=== PATIENT | female | born 1965 | race African-American/Black ===

== ENCOUNTER 2025-03-14 15:10 | Outpatient (AMB) | payer OTHER, SELFPAY ==
--- NOTE | 2025-03-14 14:08 | A.OFFPC_ITS ---
Vital Signs 03/14/25 15:12 Height 5 ft 5 in Weight 169 lb BMI 28.1 BP 120/82 Blood Pressure Location Lt brachial Position Sitting Respiration 16 Pulse 93 Pulse Source Pulse Oximeter Temp 98.1 F Temp Source Oral Pulse Oximetry (%) 95 Oxygen Delivery Method Room Air Intake Visit Reasons: Establish care, right wrist pain and swelling Signs Cleaner Required: No Accompanied by: Self / Same As Patient Allergies acetaminophen (From Vicodin) Allergy (Intermediate, Verified 03/14/25 15:14) hallucinations/itching codeine Allergy (Intermediate, Verified 03/14/25 15:14) hallucinations/itching hydrocodone (From Vicodin) Allergy (Intermediate, Verified 03/14/25 15:14) hallucinations/itching oxycodone (From Percocet) Allergy (Intermediate, Verified 03/14/25 15:14) hallucinations/itching cortisone Adverse Reaction (Intermediate, Verified 03/14/25 15:47) Rash Medication List - Last Reconciled 03/14/25 by Michelle Edwards MD amlodipine 5 mg PO DAILY atorvastatin 20 mg PO BEDTIME ibuprofen 800 mg PO 3XW multivitamin 1 tab PO DAILY Tobacco use date assessed: 03/14/25 Dental Screening Dental Screen Date: 03/14/25 Did you have a dental visit in the last 12 months?: Yes Did you have a dental problem in the last 6 months where you did not have access to dental care?: No Was dental information given to patient?: Patient has dentist HPI HPI Comments History of Present Illness Details The patient is a 59 year old female presenting to re- establish care with right wrist pain and swelling. Transfer records pending. Patient experiences right wrist pain starting three weeks prior, with continuous wrist swelling. Pain grade 10/10, reduced to 5/10 by hot water and diclofenac gel application. Pain disrupts sleep, mainly in the wrist and radiates to the elbow. Pain radiates up right forearm Hypertension: Current management includes amlodipine. Hyperlipidemia: Current management is atorvastatin. Impaired fasting glcuose-due for repeat a1c Surgical History: - Left knee surgery (details unspecified ) Social History: - Employment: Works as a security offic e in school - Exercise: Active while managing childr en - Nutrition: Recent weight reduction eff orts with healthy dietary changes - Weight: Recent decrease to approximate ly 160 pounds - Lifestyle: Eliminated snacks and sweet s, focused on healthier dietary intake Review of Systems - Musculoskeletal: Reports sharp wrist p ain, swelling, and radiation to the elbow. - General: Denies systemic symptoms such as fever. Physical Exam Gen: NAD Chest: CTABL Card: normal s1, s2, soft murmur across precordium Musculoskeletal- Confirmed tenderness and pain with flexion and extension of wrist and ulnar deviation, +[place]; reduced director of technology strength noted on the right side due to pain compared to left Assessment and Plan 1. Tendinitis - Diclofenac gel four times daily. - Wrist brace advised. - X-ray of wrist planned to also rule ou t concomitant osteoarthritis 2. Hypertension - Continue amlodipine. 3. Hyperlipidemia - Continue atorvastatin. Discussion Notes During our consultation, we discussed the likelihood of tendinitis and potential arthritis as culprits of the wrist pain and swelling, with tendinitis taking precedence due to its acute presentation. The potential complications related to NSAID use in hypertensive patients were also addressed, advised to trial tylenol 500mg po, notes in past could not tolerate tylenol. OT trial after xrays- patient is reluctant to have any potential injections due to prior reactions. If no symptom resolution occurs, a consultation with a hand specialist could be beneficial. Our discussion also encompassed the importance of maintaining consistent medication treatment for hypertension and hyperlipidemia. We explored lifestyle modifications around food intake and exercise contributing to weight reduction achievements. Patient Instructions - Apply Voltaren gel up to four times da efraín for pain. - Wear the wrist brace, especially durin g activity. - Proceed to the lab for wrist x-rays. - Continue hypertension and cholesterol medications. - Call with an update after trying the b race and gel over the next week - Avoid foods high in salt and cholester ol. [facility] Medical History (Updated 03/14/25 @ 16:07 by Michelle Edwards MD) Hyperlipidemia Impaired fasting glucose Hypertension Surgical History (Updated 03/14/25 @ 15:46 by Michelle Edwards MD) H/O knee surgery Social History Housing: Apartment Patient Tobacco Use Status: Never used Tobacco e-Cigarette/Vaping Use: Never Used service: No Current occupational status: employed Current occupation: [employer] [place] Questionnaire AUDIT C Alcohol Use Questionnaire (AUDIT-C) 1. How often do you have a drink containing alcohol?: 2-4 times a month 2. How many drinks containing alcohol do you have on a typical day when you are drinking?: 1 or 2 3. How often do you have six or more drinks on one occasion?: Never Total Score: 2 Physical exam (Primary Care) Vital Signs: Last Vital Signs Temp 98.1 F 03/14/25 15:12 Pulse 93 03/14/25 15:12 Resp 16 03/14/25 15:12 BP 120/82 03/14/25 15:12 Pulse Ox 95 03/14/25 15:12 Oxygen Delivery Method Room Air 03/14/25 15:12 BMI result Body Mass Index 28.1 Tobacco/Smoking Status: Tobacco use Status Tobacco use date assessed 03/14/25 03/14/25 14:09 Patient Tobacco Use Status Never used Tobacco 03/14/25 15:19 e-Cigarette/Vaping Use Never Used 03/14/25 15:19 Coding Level of Care Code Est Pt Level 4 (56883) Complex EM visit Add On G2211 Diagnoses Right hand pain M79.641 Primary hypertension I10 Hypertension type: primary hypertension Impaired fasting glucose R73.01 Hyperlipidemia, unspecified hyperlipidemia type E78.5 Hyperlipidemia type: unspecified Assessment & Plan Assessment & Plan (1) Right hand pain: Code(s): M79.641 - Pain in right hand Category: Medical (2) Hypertension: Code(s): I10 - Essential (primary) hypertension Category: Medical Qualifiers: Hypertension type: primary hypertension Qualified Code(s): I10 - Essential (primary) hypertension (3) Impaired fasting glucose: Code(s): R73.01 - Impaired fasting glucose Category: Medical Plan: check A1C (4) Hyperlipidemia: Code(s): E78.5 - Hyperlipidemia, unspecified Category: Medical Qualifiers: Hyperlipidemia type: unspecified Qualified Code(s): E78.5 - Hyperlipidemia, unspecified Plan - Use Voltaren gel up to 4 times/day. - Apply wrist brace during activity. - Obtain wrist x-ray. - Continue hypertension and hyperlipidemia medications. Orders: Orders Hemoglobin A1c Today I10 - Essential (primary) hypertension, R73.01 - Impaired fasting glucose Basic Metabolic Panel Today I10 - Essential (primary) hypertension, R73.01 - Impaired fasting glucose XR hand RT min 3V Today M79.641 - Pain in right hand Medications: New amlodipine 5 mg PO DAILY 90 tabs 3RF atorvastatin 20 mg PO BEDTIME 90 tabs 3RF diclofenac sodium 1% apply to single elbow, wrist or hand; for hand includes palm/fingers/back of hand 2 grams topical QID PRN 100 grams 6RF hand pain and swelling Patient Instructions: Try 500mg tylenol with dinner Use voltaren gel four times per day as needed get labs and xray use brace for hand pain
[2025-03-14 15:12] VITALS: BP 120/82; PULSE 93; RESP 16; TEMP 36.7; O2SAT 95; BMI 28.1
--- OUTSIDE RECORDS SUMMARY | 2025-03-14 16:46 | XMS_ITS | Clinical Summary ---
Author Organization [address] [facility] Address [address] [place] [address] Phone Care Team Providers Care Oven Operator Automatic Name Role Phone Unavailable Primary Care Provider Unavailabl e Allergies Active Allergy Reactions Criticality Noted Date Comments Codeine Hallucinations,Itching 04/07/2014 Hydrocodone-Acetaminophen Hallucinations,Itching 04/07/2014 Oxycodone-Acetaminophen Itching,Hallucinations 04/07/2014 Medications albuterol HFA (PROAIR HFA ; PROVENTIL HFA ; VENTOLIN HFA) 90 mcg/actuation inhaler Inhale 2 puffs by mouth every 6 (six) hours if needed for wheezing. 4 Active fluticasone propionate (FLONASE) 50 mcg/actuation nasal spray Administer 2 sprays into each nostril 1 (one) time each day. 3 Active fluticasone furoate-vilant Elizabeth (BREO ELLIPTA) 200-25 mcg/dose inhaler Inhale 1 puff by mouth 1 (one) time each day. 4 Active LORazepam (ATIVAN) 0.5 mg tablet Take 1 tablet (0.5 mg total) by mouth See administration instructions. Take 30 mins prior to flight 2 tablet 5 Active amLODIPine (NORVASC) 5 mg tablet TAKE 1 TABLET BY MOUTH EVERYDAY AT BEDTIME 90 tablet 5 Active atorvastatin (LIPITOR) 20 mg tablet Take 1 tablet (20 mg total) by mouth at bedtime. 90 tablet 5 Active ibuprofen (ADVIL,MOTRIN) 800 mg tablet Take 1 tablet (800 mg total) by mouth 3 (three) times a week. 36 tablet 5 Active Active Problems Problem Noted Date Diagnosed Date Prediabetes 02/05/2024 Obstructive sleep apnea 05/18/2022 Overview (08/21/2024): Refusing cpap Multinodular goiter 02/09/2018 Obesity (BMI 30.0-34.9) 06/27/2017 Lumbar disc herniation with radiculopathy 2017 Overview (03/07/2024): Referred to Dr. 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 Repeat US in 11/2016 shows interval increase in size and irregularity. S/p FNA biopsy results pending Vitamin D deficiency 04/27/2014 HTN (hypertension) 04/07/2014 Resolved Problems Problem Noted Date Diagnosed Date Resolved Date Supraclavicular lymphadenopathy 08/10/2022 08/21/2024 Overview (03/07/2024): Left-sided. Onset 3 weeks ago. Larger in size at onset and does appear to be improving in size per patient report. On examination there is about a 1 cm rounded soft mobile nontender lymph node. No alarm symptoms. CBC and thyroid profile within normal limits. Ultrasound pending. See progress note from 08/08/2022. Disease due to severe acute respiratory syndrome coronavirus 2 (SARS-CoV-2) 05/26/2022 04/06/2024 Overview (08/21/2024): Right shoulder pain 04/26/2016 08/22/19 25 Overview (03/07/2024): Supraspinatus and infraspinatus tendinopathy. Subacromial subdeltoid bursitis. Calcific tendinopathy versus calcific bursitis as described above. AC joint degeneration available Referred to orthopedics Immunizations Immunization Administration Dates Next Due Influenza trivalent, with pr eservative (Fluzone; Afluria) 6mo and older 09/04/2009 Tdap Tetanus diptheria acell ular pertussis (Boostrix; Adacel) 7yo and older 08/28/2014 Tetanus Toxoid, Unspecified 02/10/2009 Zoster recombinant (Shingrix) 19yo and older ,02/22/2020 Surgical History Surgery Date Site/Laterality Comments KNEE SURGERY COLONOSCOPY 11/27/2014 Colon polyps x 2 ( TA x 1), lipoma HYSTERECTOMY supracervical Medical History Medical History Date Comments Vitamin D deficiency 04/27/2014 Hypercholesterolemia 04/27/2014 Thyroid nodule 04/27/2014 Herpes simplex 04/27/2014 HTN (hypertension) Prediabetes 02/05/2024 Family History Medical History Relation Name Comments Coronary artery disease Father Alzheimer's disease Mother Relation Name Status Comments Father Mother Social History Tobacco Use Types Packs/Day Years Used Date Smoking Tobacco: Never Smokeless Tobacco: Never Alcohol Use Standard Drinks/Week Comments Yes 0 (1 standard drink = 0.6 oz pur e alcohol) Comments Unknown Sex and Gender Information Value Date Recorded Sex Assigned at Not on file Legal Sex Female 6:33 PM EST Gender Identity Not on file Sexual Orientation Not on file Obstetrics History Last Filed Vital Signs Vital Sign Reading Time Taken Comments Blood Pressure 130/75 03/01/2024 2:43 PM EDT Sit ting L Arm Pulse 89 02/23/2024 8:38 AM EDT Temperature - - Respiratory Rate - - Oxygen Saturation 97% 02/15/2024 3:45 PM EDT ambulatory o2 Inhaled Oxygen Concentration - - Weight 75.8 kg (167 lb) 03/01/2024 2:43 PM EDT Height 162.6 cm (5' 4 ) 03/01/2024 2:43 PM EDT Body Mass Index 28.67 03/01/2024 2:43 PM EDT Plan of Treatment Health Maintenance Due Date Last Done Comments Cervical Cancer Screening: Pap Smear 10/01/1984 Pneumococcal Vaccine: 50+ Years (1 of 1 - PCV) 10/01/2013 HIV Screening 04/30/2022 Social Influencers of Health Screening 04/30/2022 Hypertension/CHF/CAD Annual BMP Blood Test 05/01/2022 Depression Screening 05/22/2024 Breast Cancer Screening 05/31/2024 05/31/19 23, 05/08/2021, 04/04/2020 DTaP,Tdap,and Td Vaccines (2 - Td or Tdap) 08/28/2024 08/28/2014 Colorectal Cancer Screening: Colonoscopy 12/08/2024 12/09/2019 COVID-19 Vaccine (4 - 2024-2 6 season) 2025 05/12/2021, 08/29/2020, 08/01/2020 Influenza Vaccine (#1) 2025 09/04/2009 Cholesterol Screening (Lipid Panel) 11/03/2027 11/02/2022 RSV Immunization Adult Patients (1 - 1-dose 75+ series) 10/01/2038 Hepatitis C Screening Addressed 03/02/2015 Overri dden with the intention of not completing the topic Zoster Vaccines Completed 05/08/2022, 02/22/2020 HIB Vaccines Aged Out No longer eligi ble based on patient's age to complete this topic HPV Vaccines Aged Out No longer eligi ble based on patient's age to complete this topic Hepatitis A Vaccines Aged Out No long er eligible based on patient's age to complete this topic Hepatitis B Vaccines Aged Out No long er eligible based on patient's age to complete this topic IPV Vaccines Aged Out No longer eligi ble based on patient's age to complete this topic MMR Vaccines Aged Out No longer eligi ble based on patient's age to complete this topic Meningococcal ACWY Vaccine Aged Out N o longer eligible based on patient's age to complete this topic Meningococcal B Vaccine Aged Out No l onger eligible based on patient's age to complete this topic RSV Immunization Patients Under 20 months Aged Out No longer eligible b ased on patient's age to complete this topic Varicella Vaccines Aged Out No longer eligible based on patient's age to complete this topic Procedures Procedure Name Priority Date/Time Associated Diagnosis Comments SCREENING MAMMOGRAPHY BI 2-VIEW BREAST INC CAD Routine 05/31/2022 9:41 AM EST Encounter for screening mammogram for malignant neoplasm of breast from Last 3 Months or Most Recently Relevant to Health Maintenance Results * SCREENING MAMMOGRAPHY BI 2-VIEW BREAST INC CAD (05/31/2022 9:41 AM EST) Anatomical Region Laterality Modality Radiographic Olesya ging 05/08/2021 1:59 PM EST Narrative 05/31/2022 4:34 PM EST This is a summary report. The complete report is available in the patient's medical record. If you cannot access the medical record, please contact the sending organization for a detailed fax or copy. BILATERAL 2D and 3D DIGITAL SCREENING MAMMOGRAM History: Routine screening. No current breast complaints. Comparison: Multiple priors dating back to 04/04/2020 Technique: Bilateral full-field digital 2D and 3D mammography was performed using standard CC and MLO projections CAD was used to evaluate this mammogram. Findings: Density: There are scattered areas of fibroglandular density-B RIGHT: No suspicious masses, groups of microcalcification or areas of architectural distortion identified. Stable typically benign parenchymal asymmetries LEFT: No suspicious masses, groups of microcalcifications or areas of architectural distortion identified. Stable typically benign parenchymal asymmetries IMPRESSION: : 1. No mammographic evidence of malignancy. BI-RADS Category 2 benign findings Recommendation: Routine annual screening mammography is recommended Procedure Note Setrling Pinto MD - 06/26/2023 This is a summary report. The complete report is available in thepatient's medical record. If you cannot access the medical record, pleasecontact the sending organization for a detailed fax or copy. BILATERAL 2D and 3D DIGITAL SCREENING MAMMOGRAM History: Routine screening. No current breast complaints. Comparison: Multiple priors dating back to 04/04/2020 Technique: Bilateral full-field digital 2D and 3D mammography wasperformed using standard CC and MLO projections CAD was used to evaluate this mammogram. Findings: Density: There are scattered areas of fibroglandular density-B RIGHT: No suspicious masses, groups of microcalcification or areas ofarchitectural distortion identified. Stable typically benign parenchymalasymmetries LEFT: No suspicious masses, groups of microcalcifications or areas ofarchitectural distortion identified. Stable typically benign parenchymalasymmetries IMPRESSION: : 1. No mammographic evidence of malignancy. BI-RADS Category 2 benign findings Recommendation: Routine annual screening mammography is recommended Socorro Yeung MD IMG XR PROCEDURES Final Result from Last 3 Months or Most Recently Relevant to Health Maintenance Insurance [facility]
== END 2025-03-14 17:09 | disposition home or self-care (01) ==
LOC: HO.HMCHD 15:10
PROVIDERS: Visit Provider Internal Medicine
DX: M79.641 Pain in right hand (principal); I10 Essential (primary) hypertension; R73.01 Impaired fasting glucose; E78.5 Hyperlipidemia, unspecified

== ENCOUNTER 2025-03-14 15:10 | Outpatient (REF) | payer OTHER, SELFPAY ==
--- NOTE | ~2025-03-14 | XR_ITS ---
EXAMINATION: XR HAND, RIGHT CLINICAL INFORMATION: M79.641 - Pain in right hand COMPARISON: None available. TECHNIQUE: PA, lateral, and oblique views of the right hand. FINDINGS: There is normal bone mineralization. There is no fracture, dislocation, or suspicious bone lesion. There is normal alignment. There is no periarticular osteopenia or periarticular erosions present. There is mild osteoarthrosis in the DIP joints of the second and third digits. Joint spaces otherwise are maintained and normal in appearance. No soft tissue abnormalities are evident. XR/XR hand RT min 3V IMPRESSION: 1. No acute bony or soft tissue abnormality. No evidence of erosive arthropathy. 2. 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 Electronically signed by: Landon Solo MD 03/14/2025 04:26 PM EDT
[2025-03-14 17:49] LABS: Anion Gap 12 (12-20); Blood Urea Nitrogen 14 mg/dL (9-16); Calcium 9.3 mg/dL (8.4-10.2); Carbon Dioxide 28 mmol/L (22-29); Chloride 109 mmol/L (96-108); Estimated Glomerular Filt Rate > 60; Potassium 3.9 mmol/L (3.3-5.1); Sodium 145 mmol/L (135-145)
== END 2025-03-14 15:11 | disposition home or self-care (01) ==
LOC: HO.XRAY 15:10
PROVIDERS: PCP Internal Medicine; Visit Provider Internal Medicine
DX: I10 Essential (primary) hypertension (principal); R73.01 Impaired fasting glucose; M79.641 Pain in right hand; E78.5 Hyperlipidemia, unspecified; Z79.899 Other long term (current) drug therapy
CPT/HCPCS: 36415; 73130; 80048; 83036

== ENCOUNTER → 2025-03-14 16:10 | Outpatient (BNV) | payer OTHER, SELFPAY | PROVIDERS: PCP Internal Medicine; Visit Provider Radiology Diagnostic Radiology | DX: M19.041 Primary osteoarthritis, right hand (principal) | CPT/HCPCS: 73130 ==

== ENCOUNTER 2025-05-12 14:55 | Outpatient (AMB) | payer OTHER, SELFPAY ==
[2025-05-12 15:20] VITALS: BP 124/82; PULSE 75; RESP 16; TEMP 36.2; O2SAT 99; BMI 27.4
--- NOTE | 2025-05-12 15:20 | MHC.PC.OV ---
Vital Signs 05/12/25 15:20 Height 5 ft 5 in Weight 164 lb 8 oz BMI 27.4 BP 124/82 Blood Pressure Location Lt brachial Position Sitting Respiration 16 Pulse 75 Pulse Source Pulse Oximeter Temp 97.1 F Temp Source Temporal Artery Scan Pulse Oximetry (%) 99 Oxygen Delivery Method Room Air Intake Visit Reasons: Cold symptoms, stuffy nose Program And Research Coordinator Required: No Allergies acetaminophen (From Vicodin) Allergy (Intermediate, Verified 05/12/25 15:25) hallucinations/itching codeine Allergy (Intermediate, Verified 05/12/25 15:25) hallucinations/itching hydrocodone (From Vicodin) Allergy (Intermediate, Verified 05/12/25 15:25) hallucinations/itching oxycodone (From Percocet) Allergy (Intermediate, Verified 05/12/25 15:25) hallucinations/itching cortisone Adverse Reaction (Intermediate, Verified 05/12/25 15:25) Rash Medication List - Last Reconciled 05/12/25 by Rosana Anguiano LPN amlodipine 5 mg PO DAILY atorvastatin 20 mg PO BEDTIME benzonatate 200 mg (2 x 100 mg) PO TID PRN fluticasone propionate 50 mcg/actuation (Flonase Allergy Relief) 1 spray intranasal BID ibuprofen 800 mg PO 3XW lorazepam (Ativan) 0.5 mg PO DAILY PRN multivitamin 1 tab PO DAILY Tobacco use date assessed: 03/14/25 Dental Screening Dental Screen Date: 03/14/25 HPI HPI Comments History of Present Illness Details The patient is a 59 year old female presenting with upper respiratory symptoms. Acute Upper Respiratory Infection: The patient reports the onset of symptoms last Monday, possibly after being exposed to sick children at her workplace. Her symptoms include a non-productive cough, clear rhinorrhea, excessive sneezing with an itchy nose, and some sinus pressure. She experienced a fever on Monday, which peaked at 101.7?F and subsequently resolved after taking ibuprofen. She reports fatigue and has been primarily consuming fluids due to a decreased appetite. She has been using Flonase and discontinued Coricidin. A self-administered COVID-19 test on Monday was negative. Cerumen Impaction: The patient was found to have cerumen impaction during the examination, with wax noted in both ears. The left ear was described as slightly blocked, and the right ear contained hard wax. She denies any ear pain. Social History: - Travel: Reports an upcoming trip to [place]. Diagnostic Results: - COVID-19 Test: Negative result from a test taken on Monday. [facility] Medical History (Updated 05/12/25 @ 23:06 by Michelle Edwards MD) Acute sinusitis Fever Cough Hyperlipidemia Impaired fasting glucose Hypertension Surgical History (Updated 03/14/25 @ 15:46 by Michelle Edwards MD) H/O knee surgery Social History Housing: Apartment Patient Tobacco Use Status: Never used Tobacco e-Cigarette/Vaping Use: Never Used service: No Current occupational status: employed Current occupation: [employer] Narrative Review of Systems - Constitutional: Reports a resolved fever that reached 101.7??F on Monday. - Reports feeling sluggish and tired with decreased appetite. - HEENT: Reports clear nasal discharge, excessive sneezing, and a raw, sore, itchy nose. - Reports some sinus pain and pressure. - Denies ear pain and sore throat. - Respiratory: Reports a non-productive cough. Physical exam (Primary Care) Vital Signs: Last Vital Signs Temp 97.1 F 05/12/25 15:20 Pulse 75 05/12/25 15:20 Resp 16 05/12/25 15:20 BP 124/82 05/12/25 15:20 Pulse Ox 99 05/12/25 15:20 Oxygen Delivery Method Room Air 05/12/25 15:20 BMI result Body Mass Index 27.4 Tobacco/Smoking Status: Tobacco use Status Tobacco use date assessed 03/14/25 05/12/25 15:28 Patient Tobacco Use Status Never used Tobacco 05/12/25 15:28 e-Cigarette/Vaping Use Never Used 05/12/25 15:28 Narrative Physical Exam - HEENT: Nasal mucosa is inflamed - Otoscopy reveals cerumen in the left ear with no signs of infection; the right ear contains hard cerumen. - Sinuses are non-tender and without pressure . - Lungs: Coarse breath sounds are noted on auscultation of the left upper lobe. - Cardiovascular: Normal heart sounds are auscultated. Coding Level of Care Code Est Pt Level 4 (15696) Add On Problem Visit Only Diagnoses Cough, unspecified type R05.9 Cough type: unspecified Primary hypertension I10 Hypertension type: primary hypertension Acute frontal sinusitis, recurrence not specified J01.10 Sinusitis location: frontal Recurrence: not specified as recurrent Assessment & Plan Assessment & Plan (1) Cough: Code(s): R05.9 - Cough, unspecified Category: Medical Qualifiers: Cough type: unspecified Qualified Code(s): R05.9 - Cough, unspecified (2) Hypertension: Code(s): I10 - Essential (primary) hypertension Category: Medical Qualifiers: Hypertension type: primary hypertension Qualified Code(s): I10 - Essential (primary) hypertension (3) Acute sinusitis: Code(s): J01.90 - Acute sinusitis, unspecified Category: Medical Qualifiers: Sinusitis location: frontal Recurrence: not specified as recurrent Qualified Code(s): J01.10 - Acute frontal sinusitis, unspecified Plan Assessment and Plan 1. Acute Bronchitis and Sinusitis - The patient presents with a week-long history of non-productive cough, congestion, and resolved fever, along with fatigue and sinus pressure. - The exam findings of coarse sounds in the left upper lobe are concerning for a developing pneumonia. - A chest X-ray will be obtained today to evaluate for pneumonia. - She will be started on Augmentin twice daily as a precaution for a possible bacterial infection, given her symptoms and upcoming travel. - For nasal symptoms, she is advised to use a saline nasal spray followed by Flonase to reduce inflammation. - Emphasis was placed on maintaining hydration. 2. Cerumen Impaction - The physical exam revealed cerumen in both ears, with the right side being more significantly impacted with hard wax. - An in-office ear lavage will be performed to clear the impaction before her flight. 3. Health Maintenance - The patient is cleared for travel but advised to wear a high-quality mask. - A work excuse note has been provided. Plan - Prescribed Augmentin, one tablet to be taken twice daily with food, starting this evening. - Ordered a chest X-ray to be completed today to rule out pneumonia. - Arranged for an in-office ear lavage to remove cerumen. - Instructed the patient to use a saline nasal spray followed by one squirt of Flonase in each nostril. - Advised the patient to prioritize hydration, suggesting also incorporating fluids like Pedialyte or Gatorade. Patient Instructions - Start taking the antibiotic, Augmentin, this evening. - Take one tablet twice a day with food. - For your sore nose, first use a saline nasal spray, then use your Flonase spray. - Make sure to drink plenty of fluids, such as water, Gatorade, or Pedialyte, to stay hydrated. - Please wear a good quality mask when you fly. - We will contact you about your X-ray results. Orders: Orders XR chest 2V Today R05.9 - Cough, unspecified, R50.9 - Fever, unspecified Medications: New amoxicillin-pot clavulanate 875-125 mg 1 tab PO BID 14 tabs 0RF 7 days sodium chloride 0.65% ([place] Saline) while awake 2 sprays intranasal Q4H 50 mL 0RF
--- OUTSIDE RECORDS SUMMARY | 2025-05-12 18:11 | XMS_ITS | Clinical Summary ---
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
== END 2025-05-12 16:16 | disposition home or self-care (01) ==
LOC: HO.HMCHD 14:55
PROVIDERS: PCP Internal Medicine; Visit Provider Internal Medicine
DX: R05.9 Cough, unspecified (principal); I10 Essential (primary) hypertension; J01.10 Acute frontal sinusitis, unspecified

== ENCOUNTER 2025-05-12 14:55 | Outpatient (REF) | payer OTHER, SELFPAY ==
--- NOTE | ~2025-05-12 | XR_ITS ---
EXAMINATION: XR CHEST CLINICAL INFORMATION: R05.9 - Cough, unspecified COMPARISON: None available. TECHNIQUE: 2 views of the chest were obtained. FINDINGS: Anterior plate screws are present at C7-T1. There is no pneumothorax. Lungs are clear and well expanded. Cardiac and mediastinal silhouette is within normal limits. There is no sign of pleural effusion. XR/XR chest 2V IMPRESSION: No acute disease. Electronically signed by: Parish Morgan MD 05/12/2025 04:38 PM EST
== END 2025-05-12 14:56 | disposition home or self-care (01) ==
LOC: HO.XRAY 14:55
PROVIDERS: PCP Internal Medicine; Visit Provider Internal Medicine
DX: R50.9 Fever, unspecified (principal); R05.9 Cough, unspecified
CPT/HCPCS: 71046

== ENCOUNTER → 2025-05-12 16:23 | Outpatient (BNV) | payer OTHER, SELFPAY | PROVIDERS: PCP Internal Medicine; Visit Provider Radiology Diagnostic Radiology | DX: R05.9 Cough, unspecified (principal) | CPT/HCPCS: 71046 ==